=== PATIENT | male | born 1995 | race Caucasian/White ===

== ENCOUNTER 2018-06-17 00:17 | Inpatient (IN) | payer OTHER ==
--- NOTE | 2018-06-17 00:24 | EDPHY ---
H & P Stated Complaint: fall back 8', landed feet, right foot abn/bleeding Time Seen by Provider: 06/17/18 00:24 HPI/ROS: HPI CHIEF COMPLAINT: Fall 10 ft. Bilateral ankle pain. ht foot right ankle. Additionally complains of left ankle pain. He denies any low back pain, denies chest pain or shortness of breath. Denies head strike. He does state that he had 3 beers this evening. Denies any drug use.HISTORY OF PRESENT ILLNESS: 23-year-old male, presents to the emergency room after he states he was climbing on a building and fell off the building 10 ft landing on his feet he mainly landed on his right leg. He presents to the emergency room by private vehicle with right ankle pain and appears to have a laceration with an open right ankle fracture of the medial malleolus. Past Medical History: Denies significant medical history Past Surgical History: Denies significant surgical history Social History: Alcohol this evening. Family History: Noncontributory ROS REVIEW OF SYSTEMS: A comprehensive 10 point review of systems is otherwise negative aside from elements mentioned in the history of present illness. Exam Constitutional intoxicated, smells of alcohol, triage nursing summary reviewed , vital signs reviewed, awake/alert. Eyes normal conjunctivae and sclera, EOMI, PERRLA. HENT normal inspection, atraumatic, moist mucus membranes, no epistaxis, neck supple/ no meningismus, no raccoon eyes. Respiratory clear to auscultation bilaterally, normal breath sounds, no respiratory distress, no wheezing. Cardiovascular rate normal, regular rhythm, no murmur, no edema, distal pulses normal. Gastrointestinal soft, non-tender, no rebound, no guarding, normal bowel sounds, no distension, no pulsatile mass. Genitourinary no CVA tenderness. Musculoskeletal right lower extremity: Good distal pulse, good cap refill, over the medial malleolus of the right ankle there is an open fracture laceration. There is no bony protrusion. Venous bleeding present. no midline vertebral tenderness, full range of motion, no calf swelling, no tenderness of extremities, no meningismus, good pulses, neurovascularly intact. Skin laceration present to the medial aspect of the right ankle inferior to the medial malleolus. Neurologic awake, alert and oriented x 3, AAOx3, moves all 4 extremities equally, motor intact, sensory intact, CN II-XII intact, normal cerebellar, normal vision, normal speech. Psychiatric normal mood/affect. Heme/Lymph/Immune no lymphadenopathy. Differential Diagnosis: Includes but is not limited to in a particular order: Open right ankle fracture, left ankle fracture, chest wall injury, pneumothorax , rib fractures, lumbar spine fracture Medical Decision Making: Plan for this patient x-ray both ankles, chest x-ray, lumbar spine x-ray, pelvis x-ray. 2 g Ancef, 1 L normal saline IV fluid bolus, 0.5 mg IV Dilaudid for pain control. Will need to wash out his what appears to be right open ankle fracture. Will need to splint and contact Orthopedics. Re-evaluation: X-ray the chest one view negative for acute cardiopulmonary disease. X-ray of the left ankle negative for acute fracture X-ray of the pelvis negative for acute fracture X-ray the right foot and ankle shows a calcaneus fracture. Alcohol level 209. 0132: Spoke with Dr. Ovalle, explained that most likely this is an open fracture. Open calcaneal fracture. 2 g of Ancef have been given. Orthopedics will come and see and evaluate him. here, to take patient to OR, Plan to go to OR 6am. [place]/Surgical fixation. Source: Patient - Medical/Surgical History Hx Asthma: No Hx Chronic Respiratory Disease: No Hx Diabetes: No Hx Cardiac Disease: No Hx Renal Disease: No Hx Cirrhosis: No Hx Alcoholism: No Hx HIV/AIDS: No Hx Splenectomy or Spleen Trauma: No Other PMH: denies Constitutional: Initial Vital Signs Heart Rate 103 H 06/17/18 00:19 Respiratory Rate 26 H 06/17/18 00:19 Blood Pressure 146/113 H 06/17/18 00:19 O2 Sat (%) 99 06/17/18 00:19 O2 Delivery Mode Room Air Allergies/Adverse Reactions: No Known Allergies Allergy (Verified 06/17/18 10:12) Home Medications: Medication Instructions Recorded Multivitamins [Multivitamin (*)] 1 each PO DAILY 06/17/18 Medical Decision Making - Data Points Laboratory Results: Laboratory Results 06/17/18 00:35 06/17/18 00:35 Medications Given: Acetaminophen (Tylenol) 650 mg PO Q6HRS KIESHA Stop: 12/14/18 05:59 Last Admin: 06/18/18 23:14 Dose: 650 mg Enoxaparin Sodium (Lovenox) 40 mg SC DAILY [facility] Stop: 12/15/18 08:59 Last Admin: 06/18/18 09:18 Dose: 40 mg Famotidine (Pepcid) 20 mg PO BID [facility] Stop: 12/14/18 20:59 Last Admin: 06/18/18 21:38 Dose: 20 mg Fentanyl (Sublimaze) 50 mcg IVP Q2HRS PRN PRN Reason: Pain, Severe Unable to Take PO Stop: 06/27/18 05:54 Last Admin: 06/17/18 06:01 Dose: 50 mcg Cefazolin Sodium/Dextrose (Ancef 2 Gm) 100 mls @ 200 mls/hr IV Q8HRS KIESHA PRN Reason: Protocol Stop: 06/19/18 13:59 Last Admin: 06/18/18 21:38 Dose: 100 mls Morphine Sulfate (Morphine) 2 - 4 mg IVP Q3HRS PRN PRN Reason: Breakthrough Pain Stop: 06/27/18 02:54 Last Admin: 06/18/18 23:56 Dose: 2 mg Oxycodone HCl (Oxycodone Ir) 5 - 10 mg PO Q3HRS PRN PRN Reason: Breakthrough pain Stop: 06/27/18 02:54 Last Admin: 06/18/18 22:23 Dose: 10 mg Discontinued Medications Bupivacaine HCl (Sensorcaine 0.25% Sdv) Confirm Administered Dose 30 ml .ROUTE .STK-MED ONE Stop: 06/17/18 04:55 Last Admin: 06/17/18 08:16 Dose: Not Given Hydromorphone HCl (Dilaudid) 0.5 mg IVP EDNOW ONE Stop: 06/17/18 00:34 Last Admin: 06/17/18 01:04 Dose: 0.5 mg Hydromorphone HCl (Dilaudid) 0.5 mg IVP EDNOW ONE Stop: 06/17/18 01:27 Last Admin: 06/17/18 01:28 Dose: 0.5 mg Sodium Chloride (Ns) 1,000 mls @ 0 mls/hr IV ONCE ONE PRN Reason: Wide Open Stop: 06/17/18 00:34 Last Admin: 06/17/18 01:06 Dose: 1,000 mls Cefazolin Sodium/Dextrose (Ancef 2 Gm) 100 mls @ 200 mls/hr IV EDNOW ONE PRN Reason: Protocol Stop: 06/17/18 01:03 Last Admin: 06/17/18 01:05 Dose: 100 mls Lactated Ringer's (Lr) 1,000 mls @ 125 mls/hr IV CONT KIESHA Stop: 12/14/18 02:59 Last Admin: 06/17/18 04:34 Dose: 1,000 mls Cefazolin Sodium/Dextrose (Ancef 2 Gm) 100 mls @ 200 mls/hr IV ONCALL ONE PRN Reason: Protocol Stop: 06/17/18 06:48 Last Admin: 06/17/18 06:55 Dose: 100 mls Ketorolac Tromethamine (Toradol) 15 mg IVP Q6HRS KIESHA Stop: 06/17/18 18:01 Last Admin: 06/17/18 17:42 Dose: 15 mg Midazolam HCl (Versed) 2 mg IVP ONCALL ONE Stop: 06/17/18 05:56 Last Admin: 06/17/18 06:13 Dose: 2 mg Departure - Departure Disposition: [facility] Acute Clinical Impression: Ankle fracture Qualifiers: Encounter type: initial encounter Fracture type: open Open fracture type: open type I or II Laterality: right Qualified Code(s): S82.891B - Other fracture of right lower leg, initial encounter for open fracture type I or II Calcaneal fracture Qualifiers: Encounter type: initial encounter Calcaneus location: body Fracture type: open Fracture alignment: nondisplaced Laterality: right Qualified Code(s): S92.014B - Nondisplaced fracture of body of right calcaneus, initial encounter for open fracture Alcohol intoxication Qualifiers: Complication of substance-induced condition: uncomplicated Qualified Code(s): F10.920 - Alcohol use, unspecified with intoxication, uncomplicated Condition: Good
[2018-06-17] MEDS ORDERED: NS 1,000 ML IV ONE (00:33)
[2018-06-17] MEDS ORDERED: HYDROmorphONE/DILAUDID 2 MG/ML INJ IVP ONE ×2 (00:33→01:26)
[2018-06-17] MEDS ORDERED: ceFAZolin 2 GM/DEXTROSE 100 ML IV ONE ×2 (00:34→06:19)
[2018-06-17] MEDS ORDERED: HYDROmorphONE/DILAUDID 1 MG/ML INJ ONE ×2 (01:00→01:26)
[2018-06-17] MEDS ORDERED: CEFAZOLIN 1 GM/DEXTROSE/50 ML BAG IV ONE (01:01)
[2018-06-17 01:07] LABS: PLATELET COUNT 380 10^3/uL (150-400)
[2018-06-17] MEDS ORDERED: PROMETHAZINE HCL 25 MG SUPPR PR PRN (02:55)
[2018-06-17] MEDS ORDERED: diphenhydrAMINE 25 MG CAP PO PRN (02:55)
[2018-06-17] MEDS ORDERED: METOCLOPRAMIDE 10 MG/2 ML VIAL IVP PRN (02:55)
[2018-06-17] MEDS ORDERED: ONDANSETRON 4 MG/2 ML VIAL IVP PRN ×2 (02:55→07:40)
[2018-06-17] MEDS ORDERED: ONDANSETRON DISINTEGRATING 4 MG TAB PO PRN (02:55)
[2018-06-17] MEDS ORDERED: PROMETHAZINE HCL 25 MG/ML INJ IVP PRN ×2 (02:55→07:40)
[2018-06-17] MEDS ORDERED: LR 1,000 ML IV SCH (03:00)
--- NOTE | 2018-06-17 03:59 | GHP ---
[f rep st] HISTORY AND PHYSICAL DATE OF ADMISSION: 06/17/2018 CHIEF COMPLAINT: Right foot injury. HISTORY OF PRESENT ILLNESS: This is a 23-year-old male who was brought to the ER after a 10-foot fal l. The patient states he had been having a few drinks. He was climbing a wall 8-10 feet high, fell backward, falling directly onto his feet. He did complain of bilateral ankle pain after the fall. T here was a wound seen in the foot when he fell and was brought to the ER by private vehicle. In the ER, he complains of pain in his right heel and pain in his left ankle. He denies numbness and tingli ng. He denies prior injury to that ankle. The patient was initially seen and evaluated by the ER Se lane. Part of his workup included an x-ray of the pelvis and lower back which were negative. PAST MEDICAL HISTORY: Denies significant past medical history. PAST SURGICAL HISTORY: Denies. SOCIAL HISTORY: He drank this evening. FAMILY HISTORY: Noncontributory. REVIEW OF SYSTEMS: A 10-point review of systems is negative except for as indicated above. PHYSICAL EXAMINATION: GENERAL: The patient is alert and oriented, appears intoxicated, lying in bed in the ER. CARDIOVASCULAR: 2+ DP pulse. PULMONARY: Chest rise is equal and unlabored bilaterally . RIGHT LOWER EXTREMITY: The patient has a 3 cm transverse laceration just below the medial malleol us. There appears to be some active bleeding from this area. There is some mild swelling of the jarad l. He has intact dorsiflexion and plantar flexion of the great toe. He is unable to dorsiflex and p lantar flex the ankle due to pain. He endorses intact sensation to all dermatomes in the foot. His foot is well perfused. LEFT ANKLE: There is no swelling. No soft tissue injury. He has no tendern ess to palpation to the malleoli. He is neurovascularly intact. He has forward flexion, dorsiflexio n, plantar flexion of the left ankle. He has some tenderness to palpation over his Achilles insertio n. No open wound there. LABS: Labs show a hemoglobin of 14.9 with WBC slightly elevated at 13.28. IMAGING: Reviewed imaging of the left ankle was negative. Imaging of the lumbar spine is negative. Pelvis is negative. The x-ray of the right foot demonstrates a calcaneus fracture. His Bohler angl e is decreased to about 3 degrees. The os calcis view likely demonstrates what is likely a piece of the sustentaculum that is displaced, likely causing the open fracture. This is an intra-articular di splaced calcaneal fracture. ASSESSMENT: Grade 2 open and displaced intra-articular calcaneal fracture. Urgent irrigation and de bridement are indicated for this injury. We will take the patient to the OR in expedient fashion. Rocio quezada received Ancef and tetanus in the ED. We will admit him to my service for IV antibiotics. I have discussed with the patient, the risk and severity of the injury. The rate of complications for open calcaneal fractures is significant. I did discuss with him the important thing right now is aggressi ve management of the open injury. He will need more than 1 surgery with later definitive fixation. I did discuss with him that recovery from these injuries is prolonged. /[id number]/MODL
[2018-06-17] MEDS: oxyCODONE IR 5 MG TAB PO PRN ×6 (04:21→21:42)
[2018-06-17] MEDS ORDERED: fentaNYL 100 MCG/2 ML INJ ONE ×2 (05:54→06:19)
[2018-06-17] MEDS ORDERED: MIDAZOLAM 2 MG/2 ML VIAL IVP ONE (05:55)
[2018-06-17] MEDS ORDERED: fentaNYL 100 MCG/2 ML INJ IVP PRN ×2 (05:55→07:40)
[2018-06-17] MEDS: BUPIVACAINE 0.25% 30 ML SDV ONE ×2 (06:00→08:16)
--- NOTE | 2018-06-17 06:00 | PDANEPAE ---
ANE History of Present Illness 23 year old with open ankle fracture ANE Past Medical History - Pulmonary History Hx Oxygen in Use at Home: No Hx Sleep Apnea: No Sleep Apnea Screening Result - Last Documented: Negative - Endocrine History Hx Diabetes: No ANE Review of Systems Review of systems is: negative Review of Systems: ANE Patient History - Allergies Allergies/Adverse Reactions: No Known Allergies Allergy (Unverified 06/17/18 00:19) - Home Medications Home Medications: NK [No Known Home Meds] 06/17/18 [Last Taken Unknown] - NPO status NPO Since - Liquids (Date): 06/16/18 NPO Since - Liquids (Time): 23:00 NPO Since - Solids (Date): 06/16/18 NPO Since - Solids (Time): 21:00 - Smoking Hx Smoking Status: Current some day smoker - Alcohol Use Alcohol Use: Occasionally ANE Labs/Vital Signs - Labs Result Diagrams: 06/17/18 00:35 06/17/18 00:35 - Vital Signs Blood Pressure: 121/65 Heart Rate: 105 Respiratory Rate: 17 O2 Sat (%): 94 Height: 182.88 cm Weight: 79.379 kg ANE Physical Exam - Airway Mallampati Score: Class 1 Mouth exam: normal dental/mouth exam - Pulmonary Pulmonary: no respiratory distress, clear to auscultation - Cardiovascular Cardiovascular: regular rate and rhythym - ASA Status ASA Status: I, E ANE Anesthesia Plan Anesthesia Plan: GA w LMA
[2018-06-17] MEDS ORDERED: MIDAZOLAM 2 MG/2 ML VIAL ONE (06:01)
[2018-06-17] MEDS ORDERED: PROPOFOL 200 MG/20 ML VIAL ONE (06:19)
--- NOTE | 2018-06-17 06:20 | PDHPUP ---
History & Physical Update H&P update statement: This history and physical update is based on an assessment of the patient which was completed after admission or registration (within 24 hours), but prior to the surgery/procedure. H&P update: H&P reviewed & patient examined, no change in patient's condition since H&P completed
[2018-06-17] MEDS ORDERED: HYDROmorphONE/DILAUDID 2 MG/ML INJ ONE (06:49)
[2018-06-17] MEDS ORDERED: SUGAMMADEX SODIUM 200 MG/2 ML VIAL IVP ONE (07:36)
[2018-06-17] MEDS ORDERED: NALOXONE HCL 0.4 MG/ML INJ IVP PRN (07:40)
[2018-06-17] MEDS ORDERED: HYDROmorphONE/DILAUDID 1 MG/ML INJ IVP PRN (07:40)
--- NOTE | 2018-06-17 08:07 | POSTANESTH ---
Post Anesthetic Evaluation Cardiovascular Status: Normal, Stable, Tx Over/Under Hydration Level of Consciousness/Mental Status: Can Participate in Eval Pain Control: Adequate, Prn Tx Ordered Nausea/Vomiting Control: Adequate, Prn Tx Ordered Complications Possibly Related to Anesthesia: None Noted
[2018-06-17] MEDS: ACETAMINOPHEN 325 MG TAB PO SCH ×3 (09:12→17:43)
[2018-06-17] MEDS: ceFAZolin 2 GM/DEXTROSE 100 ML IV SCH ×3 (09:12→21:23)
[2018-06-17] MEDS: KETOROLAC 15 MG/1 ML SDV IVP SCH ×2 (11:18→17:42)
[2018-06-17] MEDS ORDERED: ceFAZolin 2 GM/DEXTROSE 100 ML IV SCH (14:00)
--- NOTE | 2018-06-17 15:21 | ASMTCMCOM ---
CM Note CM Note Notes: Pt admitted to hospital after falling from about 10ft. He sustained an broken R heel and had surgery, PT/OT are ordered. Anticipate pt will need at least home care. Tisha from financial counseling is confirming pt's insurance, CM w/f. DC Plan: TBD Date Signed: 06/17/2018 03:20 PM Electronically Signed By:Michelle Naranjo RN
--- NOTE | 2018-06-17 17:15 | PDMN ---
Medical Necessity Medical necessity: Pt meets INPT criteria per and [facility] [place] Musculoskeletal Surgery GRG (grade 2 open and displaced intra-articular calcaneal fracture requiring urgent irrigation and debridement, ongoing IVABx; will need more than 1 surgery with later definitive fixation; est. LOS >2 MN).
--- NOTE | 2018-06-17 17:46 | SOAPPROG ---
SOAP Progress Note Assessment/Plan: Assessment: POD#0 s/p R calcaneus I&D and pinning -doing well this evening Plan: -IV Ancef x48hrs after washout for Gr2 open fx -pain ctrl -PT/OT -elevate RUE on pillows - no pressure under heel -start Elder tmrw for DVT prophy -plan d/c Fri after 48hr IV abx. Will have the pt f/u with one of our foot and ankle surgeons early next week for planning of definitive treatment -post op CT this am 06/17/18 17:41 Subjective: Appears to be doing well this afternoon. Pain has been well controlled. Objective: Vital Signs Temp Pulse Resp BP Pulse Ox 36.6 C 90 16 107/59 L 97 06/17/18 16:00 06/17/18 16:00 06/17/18 16:00 06/17/18 16:00 06/17/18 16:00 06/16/18 06/17/18 06/18/18 05:59 05:59 05:59 Intake Total 1000 1020 Output Total 500 0 Balance 500 1020 Exam Gen: NAD, lying in bed with foot on pillows RUE -splint in place, clean and dry -intact EHL/FHL -SILT all dermatomes -toes well perfused - Time Spent With Patient Time Spent With Patient: 15 min - Pending Discharge Pending Discharge Within 48 Hours: Yes Pending Discharge Date: 06/19/18 Pending Discharge Time: 11:00 ICD10 Worksheet Patient Problems: Problems Problem Status Onset Alcohol intoxication Acute Ankle fracture Acute Calcaneal fracture Acute
--- NOTE | 2018-06-17 20:08 | GOP ---
[f rep st] OPERATIVE REPORT DATE OF OPERATION: 06/17/2018 SURGEON: Simón Ovalle MD ANESTHESIA: General. PREOPERATIVE DIAGNOSIS: Right grade II open displaced intra-articular calcaneus fracture. POSTOPERATIVE DIAGNOSIS: Right grade II open displaced intra-articular calcaneus fracture. PROCEDURE PERFORMED: 1. Right open grade II calcaneus fracture irrigation and debridement of skin, subcutaneous tissue, fascia, muscle and bone at the site of the open fracture. 2. Percutaneous K-wire stabilization of displaced intra-articular calcaneus fracture. FINDINGS: ESTIMATED BLOOD LOSS: 10 cc. 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 He had several drinks and was climbing a retaining wall when he fell backward, striking the ground from 8-10 feet with the back of his right heel. He had immediate pain and there was a wound. He was taken by private vehicle to the ER. He was seen and evaluated by the ER staff and by me. On examination, he had about 2-1/2 cm oblique open wound over the medial ankle. There appeared to be a fracture hematoma and bleeding coming from the wound. I reviewed the x-rays. X-rays show displaced intra-articular calcaneus fracture. Thus, he had an open grade 2 displaced intra-articular calcaneus fracture. Urgent I and D plus or minus stabilization was indicated. Discussed with him the risks and benefits of surgery. Risks include pain, bleeding, infection, damage to surrounding structures, wound healing complications, stiffness, weakness, need for further surgeries. He understood these risks and wished to proceed. DESCRIPTION OF PROCEDURE: The patient was seen in preoperative holding area. Consents were confirmed. Surgical site was marked. He was then transferred to the operative suite. Care was taken to transfer the patient from the [facility] to the operating room table. Care was taken to pad all bony prominences prior to induction of anesthesia. General anesthesia was induced by the anesthesia team. Time-out was called including surgical and anesthesia teams confirming the surgical site and procedure to be performed. The right upper extremity was prepped and draped in the usual sterile fashion. Of note, he was given an initial 2 g dose of IV antibiotics in the ED upon arrival and then given a repeat dose prior to incision. His tetanus was up-to-date per the ED staff. After prepping and draping the right upper extremity, the tourniquet was inflated to 300 mmHg. The traumatic wound was extended both proximally and distally. I also carefully ellipsed out the traumatic skin to debride it with a knife sharply and used a knife to sharply debride any contaminated fascia, subcutaneous tissue, or muscle. I then used a curette to debride the bone ends at the site of the opening. After this was done, we then began irrigating copiously with sterile saline and irrigated with over 6 L of sterile saline with gravity irrigation. After irrigation, I performed a provisional manual reduction to take the heel slightly out of Ve[place] and to reduce the medial spike that was coming out the medial skin. I was then able to hold this with the Steinmann pin through the calcaneal tuberosity fragment into the calcaneocuboid joint. This would prevent any pressure from the calcaneal tuberosity fragment on the skin, as well as provisional reduce the medial spike to prevent this from pressing on the skin. After this was done, the pin was bent and cut short. The traumatic site was closed with 3-0 Monocryl and then 3- 0 nylon sutures interrupted fashion. A bulky Escobedo type splint was applied using the bulky cotton. After this was done, he was taken to the PACU in stable condition. POSTOPERATIVE CONDITION: Stable. POSTOPERATIVE PLAN: The patient will be admitted to my service. He will stay for a recommended full course of 48 hours of IV antibiotics. /[id number]/MODL MTDD
[2018-06-17] MEDS: FAMOTIDINE 20 MG TAB PO SCH (21:23)
[2018-06-18] MEDS: ACETAMINOPHEN 325 MG TAB PO SCH ×5 (00:54→23:14)
[2018-06-18] MEDS: oxyCODONE IR 5 MG TAB PO PRN ×7 (00:55→22:23)
[2018-06-18] MEDS: ceFAZolin 2 GM/DEXTROSE 100 ML IV SCH ×3 (06:20→21:38)
[2018-06-18] MEDS: FAMOTIDINE 20 MG TAB PO SCH ×2 (09:17→21:38)
[2018-06-18] MEDS: ENOXAPARIN 40 MG/0.4 ML SYR SC SCH (09:18)
--- NOTE | 2018-06-18 13:47 | ASMTCMCOM ---
CM Note CM Note Notes: Chart reviewed. 23 year old male s/p fall and fracture to right foot. He worked with PT who states is is cleared for dc to home with no needs. CM available should needs arise. Plan: DC to home when medically cleared for discharge. Date Signed: 06/18/2018 01:46 PM Electronically Signed By:Ashlee Mendez RN
--- NOTE | 2018-06-18 21:04 | SOAPPROG ---
SOAP Progress Note Assessment/Plan: Assessment: POD#1 s/p R calcaneus I&D and pinning -doing well, pain ctrl'd Plan: -IV Ancef x48hrs after washout for Gr2 open fx -pain ctrl -PT/OT -elevate RUE on pillows - no pressure under heel -Elder for DVT prophy while inpt -plan d/c Fri after 48hr IV abx. Will have the pt f/u with one of our foot and ankle surgeons early next week for planning of definitive treatment 06/17/18 17:41 06/18/18 21:02 Subjective: Doing well today. Pain is well ctrl'd. He did well with PT using crutches. Objective: Vital Signs Temp Pulse Resp BP Pulse Ox 36.9 C 77 14 98/75 L 99 06/18/18 19:40 06/18/18 19:40 06/18/18 19:40 06/18/18 19:40 06/18/18 19:40 06/17/18 06/18/18 06/19/18 05:59 05:59 05:59 Intake Total 1000 1020 100 Output Total 500 0 700 Balance 500 1020 -600 Gen: alert and oriented, lying in bed R foot -splint in place, clean and dry -SILT all toes -intact toe DF/PF -toes well perfused ICD10 Worksheet Patient Problems: Problems Problem Status Onset Alcohol intoxication Acute Ankle fracture Acute Calcaneal fracture Acute
[2018-06-19] MEDS: ACETAMINOPHEN 325 MG TAB PO SCH ×2 (05:37→13:16)
[2018-06-19] MEDS: ceFAZolin 2 GM/DEXTROSE 100 ML IV SCH (05:37)
[2018-06-19] MEDS: oxyCODONE IR 5 MG TAB PO PRN ×4 (05:37→16:16)
[2018-06-19] MEDS: FAMOTIDINE 20 MG TAB PO SCH (09:47)
--- NOTE | 2018-06-19 10:38 | ASMTLACE ---
HARINI Length of stay for Answers: 2 days current admission Acuity / Level of Answers: Yes Care: Did the patient have an inpatient admission? # of Emergency department Answers: 1-2 visits in the last 6 months Score: 6 Date Signed: 06/19/2018 10:37 AM Electronically Signed By:Valerie Bustillo
[2018-06-19 12:04] VITALS: BP 128/79
[2018-06-19] MEDS: ENOXAPARIN 40 MG/0.4 ML SYR SC SCH (15:29)
--- NOTE | 2018-06-19 16:15 | GDS ---
[f rep st] DISCHARGE SUMMARY ADMITTING DIAGNOSIS: Right grade II open calcaneus fracture. OPERATIONS/PROCEDURES PERFORMED: On June 17, 2018, irrigation and debridement of right open grade II calcaneus fracture and percutaneous stabilization of calcaneus fracture. HOSPITAL COURSE: The patient is a 23-year-old male who early the morning of Friday, June 17, cl imbed a wall about 8 to 10 feet high and fell backwards landing onto his right heel. He admitted to some drinking that night. He was seen by me in the ED. I evaluated the patient and evaluated the x- rays which showed a nondisplaced intraarticular calcaneus fracture. I inspected the ankle. There wa s a about 3 cm open wound over the medial ankle. This was thus a grade II open calcaneus fracture. Urgent I and D was indicated. I took him later that morning for I and D. His surgery was uneventful. The remainder of his hospital course was uneventful. He was placed in a bulky splint. The entire hospital course is heel was kept elevated on pillows in the air off any pressure. He received a 48-h our course of IV Ancef. His pain was well controlled on p.o. pain medications. He was given Lovenox for DVT prophylaxis and on June 19, after finishing his antibiotics, he was thus deemed stable and was discharged home. DISCHARGE PLAN: This patient will follow up in 3 days in the clinic with Dr. Brice Herring who is our foot and ankle surgeon, he is my partner in our practice. He will perform a definitive fixation of the calcaneus fracture. I will be in clinic to examine the patient that day as well. /[id number]/MODL
== END 2018-06-19 16:50 | disposition home or self-care (01) | DRG 494 ==
LOC: OBSVTOIN 02:33 → F3E 03:36
PROVIDERS: ADMIT Orthopaedic Surgery Hand Surgery; ATTEND Orthopaedic Surgery Hand Surgery
PROC: 0SSF04Z Reposition Right Ankle Joint with Internal Fixation Device, Open Approach (ICD-10-PCS; principal; 2018-06-17 06:00)
DX: S92.061B Displaced intraarticular fracture of right calcaneus, initial encounter for open fracture (principal); W17.89XA Other fall from one level to another, initial encounter; Y93.31 Activity, mountain climbing, rock climbing and wall climbing; Z72.0 Tobacco use; F10.129 Alcohol abuse with intoxication, unspecified; Y90.7 Blood alcohol level of 200-239 mg/100 ml
CPT/HCPCS: 96374; 97116-GP; 97161-GP; 97165-GO; 97530-GO; 97530-GP; 97535-GO; C1713; G0480; J0690; J1170; J1650; J1885; J2250; J2270; J2704; J3010

== ENCOUNTER → 2018-07-17 | Outpatient (CLI) | payer OTHER | LOC: BMCIMAGING 10:14 | PROVIDERS: ATTEND Podiatrist Foot & Ankle Surgery | DX: Z47.89 Encounter for other orthopedic aftercare (principal); S92.001D Unspecified fracture of right calcaneus, subsequent encounter for fracture with routine healing ==

== ENCOUNTER → 2018-08-14 | Outpatient (CLI) | payer OTHER | LOC: BMCIMAGING 10:43 | PROVIDERS: ATTEND Podiatrist Foot & Ankle Surgery | DX: Z09 Encounter for follow-up examination after completed treatment for conditions other than malignant neoplasm (principal); S92.061D Displaced intraarticular fracture of right calcaneus, subsequent encounter for fracture with routine healing ==

== ENCOUNTER → 2018-08-28 | Outpatient (CLI) | payer OTHER | LOC: BMCIMAGING 11:06 | PROVIDERS: ATTEND Podiatrist Foot & Ankle Surgery | DX: S92.061D Displaced intraarticular fracture of right calcaneus, subsequent encounter for fracture with routine healing (principal) ==

== ENCOUNTER → 2018-09-18 | Outpatient (CLI) | payer OTHER | LOC: BMCIMAGING 10:59 | PROVIDERS: ATTEND Podiatrist Foot & Ankle Surgery | DX: Z09 Encounter for follow-up examination after completed treatment for conditions other than malignant neoplasm (principal); S92.061D Displaced intraarticular fracture of right calcaneus, subsequent encounter for fracture with routine healing ==

== ENCOUNTER → 2019-01-11 | Outpatient (CLI) | payer OTHER | LOC: BMCIMAGING 13:10 | PROVIDERS: ATTEND Podiatrist Foot & Ankle Surgery | DX: S92.001D Unspecified fracture of right calcaneus, subsequent encounter for fracture with routine healing (principal) ==